=== PATIENT | female | born 1985 | race Caucasian/White ===

== ENCOUNTER 2021-06-14 15:32 | Emergency (ER) | payer OTHER ==
[~2021-06-14] VITALS: Ht 165.1 cm; Wt 74.8 kg
[2021-06-14] MEDS ORDERED: MECLIZINE HCL 12.5 MG TAB PO ONE (16:45)
[2021-06-14] MEDS ORDERED: SODIUM CHLORIDE 0.9% 1000ML 1,000 ML IV SCH (16:45)
[2021-06-14 16:53] VITALS: BP 115/66
[2021-06-14] MEDS ORDERED: MECLIZINE HCL 12.5 MG TAB ONE (17:13)
[2021-06-14] MEDS ORDERED: SODIUM CHLORIDE 0.9% 1000ML 1,000 ML ONE (17:14)
[2021-06-14] MEDS ORDERED: ONDANSETRON ODT4 MG PO (17:34)
[2021-06-14] MEDS ORDERED: MECLIZINE HCL12.5 MG PO (17:34)
== END 2021-06-14 17:48 | disposition home or self-care (01) ==
LOC: FSED 16:25
DX: R42 Dizziness and giddiness (principal); H81.10 Benign paroxysmal vertigo, unspecified ear
CPT/HCPCS: 70450; 99284; J7030; J8597